=== PATIENT | female | born 1960 | race Caucasian/White ===

== ENCOUNTER → 2018-09-29 | Outpatient (CLI) | payer OTHER | LOC: FIMAGING 15:18 | PROVIDERS: ATTEND Family Medicine | DX: Z12.31 Encounter for screening mammogram for malignant neoplasm of breast (principal); R92.2 Inconclusive mammogram ==

== ENCOUNTER → 2018-10-06 | Outpatient (CLI) | payer OTHER | LOC: BRMIMAGING 08:53 | PROVIDERS: ATTEND Family Medicine | DX: R92.8 Other abnormal and inconclusive findings on diagnostic imaging of breast (principal) ==

== ENCOUNTER → 2019-02-24 | Outpatient (CLI) | payer OTHER | LOC: FIMAGING 11:14 | PROVIDERS: ATTEND Otolaryngology Otolaryngology/Facial Plastic Surgery | DX: M22.2X1 Patellofemoral disorders, right knee (principal); M22.2X2 Patellofemoral disorders, left knee ==